=== PATIENT | female | born 1985 | race Two or more races ===

== ENCOUNTER 2019-12-18 12:12 | Emergency (ER) | payer MEDICAID ==
[~2019-12-18] VITALS: Ht 149.9 cm; Wt 61.2 kg
--- NOTE | 2019-12-18 12:45 | NUR ---
ED Nurse Note:pt. was BIBA from home with general weakness, pt. is ambulatory A/Ox4 SOB with wheezing, blood and urine , covid swab sent to labs, EKG done
[2019-12-18 13:01] VITALS: BP 106/73
[2019-12-18 13:18] LABS: APPEARANCE,URINE SLIGHTLY CLOUDY; BILIRUBIN, URINE NEGATIVE (NEGATIVE); GLUCOSE, URINE (UA) NEGATIVE (NEGATIVE); KETONES,URINE NEGATIVE (NEGATIVE); LEUKOCYTE ESTERASE ,URINE 1+ (NEGATIVE); NITRITE,URINE NEGATIVE (NEGATIVE); PH,URINE 5 (4.5-8.0); PROTEIN,URINE 2+ (NEGATIVE); UROBILINOGEN,URINE NORMAL MG/DL (0.0-1.0)
[2019-12-18 13:24] LABS: COLOR,URINE YELLOW
[2019-12-18 13:26] LABS: BASOPHILS % (AUTO) 1.1 % (0.0-2.0); EOSINOPHILS % (AUTO) 11.4 % (0.0-3.0); LYMPHOCYTES % (AUTO) 17.4 % (20.0-45.0); MEAN CORPUSCULAR VOLUME 86 FL (80-99); MONOCYTES % (AUTO) 9.7 % (1.0-10.0); NEUTROPHILS % (AUTO) 60.3 % (45.0-75.0); PLATELET COUNT 307 K/UL (150-450); RED BLOOD COUNT 4.56 M/UL (4.20-5.40); RED CELL DISTRIBUTION WIDTH 12.8 % (11.6-14.8)
[2019-12-18 13:32] LABS: ANION GAP 11 mmol/L (5-15); BLOOD UREA NITROGEN 15 mg/dL (7-18); CALCIUM 8.4 MG/DL (8.5-10.1); CARBON DIOXIDE 25 MMOL/L (21-32); CHLORIDE 103 MMOL/L (98-107); CREATININE 0.7 MG/DL (0.55-1.30); POTASSIUM 3.9 MMOL/L (3.5-5.1); SODIUM 139 MMOL/L (136-145)
[2019-12-18 13:36] LABS: ALANINE AMINOTRANSFERASE 23 U/L (12-78); ALBUMIN 3.3 G/DL (3.4-5.0); ALBUMIN/GLOBULIN RATIO 0.8 (1.0-2.7); ALKALINE PHOSPHATASE 50 U/L (46-116); ASPARTATE AMINO TRANSFERASE 19 U/L (15-37); BILIRUBIN,TOTAL 0.6 MG/DL (0.2-1.0)
[2019-12-18] MEDS: Albuterol/Ipratropium 3ml neb HHN SCH ×2 (13:49→13:56)
--- NOTE | 2019-12-18 13:50 | Emergency Room Report ---
History of Present Illness General Chief Complaint: General Complaint Source: Patient Present Illness HPI 34-year-old female with history of asthma brought in by paramedics due to shortness of breath. Patient reports that she ran out of her albuterol long time ago and has been wheezing for the past few days. Denies any cough and congestion, sore throat, fever chills, abdominal pain, nausea vomiting diarrhea. Denies any drug use however appears to be under the influence of an unknown stimulant. Denies , and urinary symptoms. Diffuse wheezing noted on physical examination. Oxygenation within normal limits. Patient is afebrile. LMP is today and denies any Allergies: Coded Allergies: No Known Allergies (Unverified , 12/18/19) COVID-19 Screening Contact w/high risk pt: No Experienced COVID-19 symptoms?: No COVID-19 Testing performed PLASTIC AND RECONSTRUCTIVE SURGEON: No Patient History Last Menstrual Period: 12/18/19 Now: No Immunizations: UTD Reviewed Nursing Documentation: PMH: Agreed; PSxH: Agreed Nursing Documentation-PMH Past Medical History: No History, Except For History Of Psychiatric Problem: Yes Review of Systems All Other Systems: negative except mentioned in HPI Physical Exam Vital Signs Date Time Temp Pulse Resp B/P (MAP) Pulse Ox O2 Delivery O2 Flow Rate FiO2 12/18/19 12:11 98.2 95 16 106/73 (84) 99 Room Air Sp02 EP Interpretation: reviewed, normal General Appearance: alert, GCS 15, non-toxic, mild distress Head: normocephalic, atraumatic Eyes: bilateral eye normal inspection, bilateral eye PERRL ENT: hearing grossly normal, normal pharynx, no angioedema, normal voice Neck: full range of motion, supple/symm/no masses Respiratory: chest non-tender, lungs clear, no rhonchi, no respiratory distress, no retraction, speaking full sentences, wheezing - diffuse Cardiovascular #1: regular rate, rhythm, no edema Cardiovascular #2: 2+ carotid (R), 2+ carotid (L), 2+ radial (R), 2+ radial (L), 2+ dorsalis pedis (R), 2+ dorsalis pedis (L) Gastrointestinal: normal bowel sounds, non tender, soft, non-distended, no guarding, no rebound Rectal: deferred Genitourinary: no CVA tenderness Musculoskeletal: back normal, no calf tenderness Neurologic: alert, motor strength/tone normal, oriented x3, sensory intact, responsive, speech normal Psychiatric: judgement/insight normal, memory normal, mood/affect normal, no suicidal/homicidal ideation Skin: no rash Lymphatic: no adenopathy Medical Decision Making PA Attestation All my diagnosis and treatment plans were reviewed ad discussed with my supervising physician Dr. Rodarte Diagnostic Impression: Primary Impression: Asthma exacerbation Additional Impression: Methamphetamine abuse ER Course 34-year-old female with history of asthma brought in by paramedics due to shortness of breath. Patient reports that she ran out of her albuterol long time ago and has been wheezing for the past few days. Denies any cough and c ongestion, sore throat, fever chills, abdominal pain, nausea vomiting diarrhea. Denies any drug use however appears to be under the influence of an unknown stimulant. Denies , and urinary symptoms. Diffuse wheezing noted on physical examination. Oxygenation within normal limits. Patient is afebrile. LMP is today and denies any Ddx considered but are not limited to: Coronavirus, asthma exacerbation, bronchitis, PNA, URI viral, bacterial bronchitis Vital signs: are WNL, pt. is afebrile H&PE are most consistent with: Aspect of separation, methamphetamine abuse ORDERS: CBC, CMP, UA, tox screen, urine test, EKG, troponin, chest x- ray, prednisone, albuterol ED INTERVENTIONS: 3 treatments of albuterol ipratropium after negative COVID test DISCHARGE: At this time pt. is stable for d/c to home. Will provide printed patient care instructions, and any necessary prescriptions. Care plan and follow up instructions have been discussed with the patient prior to discharge. Patient take medication as directed, follow primary care provider, avoid using methamphetamine if worsening symptoms return to the emergency room EKG Diagnostic Results Rate: normal Rhythm: NSR ST Segments: no acute changes Other Impression no acute st changes ASA given to the pt in ED: No Chest X-Ray Diagnostic Results Chest X-Ray Diagnostic Results : Chest X-Ray Ordered: Yes # of Views/Limited/Complete: 1 View Indication: Shortness of Breath EP Interpretation: Yes BASILIA Xray: Interpretation reviewed, by supervising MD, and agrees with findings. Interpretation: no consolidation, no effusion, no pneumothorax Impression: No acute disease Electronically Signed by: Jesus Corado PA-C Last Vital Signs Date Time Temp Pulse Resp B/P (MAP) Pulse Ox O2 Delivery O2 Flow Rate FiO2 12/18/19 13:01 95 16 Room Air 12/18/19 13:01 98.2 106/73 99 Disposition: HOME, SELF-CARE Condition: Stable Scripts Prednisone* (PREDNISONE*) 20 Mg Tablet 40 MG ORAL DAILY for 5 Days, #10 TAB Prov: Jesus Prather 12/18/19 Albuterol Sulfate (VENTOLIN HFA) 18 Gm Hfa.aer.ad 2 PUFFS INH EVERY 6 HOURS, #18 GM 0 Refills Prov: Jesus Prather 12/18/19 Referrals: MAE HARDIN,REFERRING (PCP) Patient Instructions: Asthma, Adult, Stimulant Use Disorder-Methamphetamines Additional Instructions: Take medication as directed, avoid using methamphetamine, follow primary care provider, if worsening symptoms return to the emergency room Jesus Prather Dec 18, 2019 13:50
[2019-12-18] MEDS ORDERED: VENTOLIN HFA18 GM INH (13:51)
[2019-12-18] MEDS ORDERED: PREDNISONE20 MG ORAL (13:51)
[2019-12-18 14:35] VITALS: BP 112/75
--- NOTE | 2019-12-18 14:40 | NUR ---
ER DISCHARGE NOTE: Patient is cleared to be discharged per ERMD, pt is aox4, on room air, with stable vital signs. pt was given dc and prescription instructions, pt was able to verbalize understanding, pt id band and iv site removed without complications. pt is able to ambulate with steady gait. pt took all belongings.
[2019-12-18 14:45] VITALS: BP 112/75
--- NOTE | 2019-12-18 21:51 | Diagnostic Imaging Report ---
Indication: Shortness of breath Technique: One view of the chest Comparison: none Findings: Lungs and pleural spaces are clear. Heart size is normal. Impression: No acute process
== END 2019-12-18 14:46 | disposition home or self-care (01) ==
LOC: EDBD 12:12 → EMR 12:44
DX: J45.901 Unspecified asthma with (acute) exacerbation (principal); F15.10 Other stimulant abuse, uncomplicated
CPT/HCPCS: 36415; 71045; 80053; 80307; 81003; 81025; 84484; 85025; 93005; 94640; U0002; Z7502; 99284; J7620